=== PATIENT | male | born 1950 | race Caucasian/White ===

== ENCOUNTER 2016-10-24 13:17 | Emergency (ER) | payer SELFPAY ==
[~2016-10-24] VITALS: Ht 185.4 cm; Wt 98.0 kg
[~2016-10-24 13:17] MED LIST: HALO5AMP3 PO; METF10002 PO
[2016-10-24] MEDS ORDERED: SODIUM CHLORIDE 0.9% 1,000ML IVBOLUS ONE ×2 (13:30→14:30)
[2016-10-24] MEDS ORDERED: PLEASE ENTER ALLERGIES MC SCH ×2 (13:30)
[2016-10-24 13:44] VITALS: BP 164/74
[2016-10-24 14:03] LABS: HEMOGLOBIN 13.8 g/dL (13.7-18.0)
[2016-10-24 14:08] LABS: BLOOD UREA NITROGEN 12 mg/dL (7-18)
[2016-10-24] MEDS ORDERED: INSULIN REGULAR 100 UNITS/ML, 3ML VIAL SQ-INSULIN ONE (14:30)
[2016-10-24] MEDS ORDERED: INSULIN REGULAR 100 UNITS/ML, 3ML VIAL ONE (14:44)
== END 2016-10-24 15:04 | disposition home or self-care (01) ==
LOC: ED 14:58
DX: F10.220 Alcohol dependence with intoxication, uncomplicated (principal); E11.65 Type 2 diabetes mellitus with hyperglycemia; I10 Essential (primary) hypertension
CPT/HCPCS: 36415; 80048; 82040; 85025; 96360; 96372; 99284; J7030

== ENCOUNTER 2016-11-10 13:47 | Emergency (ER) | payer SELFPAY ==
[~2016-11-10] VITALS: Ht 185.4 cm; Wt 93.0 kg
[~2016-11-10 13:47] MED LIST changes: +INSU100V5 SQ-INSULIN
[2016-11-10 13:53] VITALS: BP 138/78
[2016-11-10] MEDS ORDERED: IBUPROFEN 100 MG/5 ML UDC ONE (14:34)
[2016-11-10 14:35] LABS: HEMOGLOBIN 15.7 g/dL (13.7-18.0)
[2016-11-10 14:49] LABS: ASPARTATE AMINO TRANSFERASE 11 U/L (15-37); BLOOD UREA NITROGEN 11 mg/dL (7-18)
== END 2016-11-10 15:25 | disposition left against medical advice (07) ==
LOC: ED 15:19
DX: E11.65 Type 2 diabetes mellitus with hyperglycemia (principal); I10 Essential (primary) hypertension; F17.210 Nicotine dependence, cigarettes, uncomplicated
CPT/HCPCS: 36415; 71010; 80053; 82010; 82800; 83036; 85025; 99285

== ENCOUNTER 2016-11-27 14:21 | Emergency (ER) | payer SELFPAY ==
[~2016-11-27] VITALS: Ht 182.9 cm; Wt 90.0 kg
[2016-11-27 14:24] VITALS: BP 148/83
[2016-11-27 15:01] LABS: HEMOGLOBIN 15.6 g/dL (13.7-18.0)
[2016-11-27 15:11] LABS: BLOOD UREA NITROGEN 14 mg/dL (7-18)
[2016-11-27] MEDS ORDERED: metFORMIN 500 MG TABLET PO SCH (15:30)
== END 2016-11-27 15:42 | disposition home or self-care (01) ==
LOC: ED 14:56
DX: E11.65 Type 2 diabetes mellitus with hyperglycemia (principal); I10 Essential (primary) hypertension
CPT/HCPCS: 36415; 80048; 82040; 85025; 99284

== ENCOUNTER 2017-08-28 11:01 | Emergency (ER) | payer SELFPAY ==
[~2017-08-28] VITALS: Ht 180.3 cm; Wt 100.0 kg
[2017-08-28 11:14] VITALS: BP 148/72
== END 2017-08-28 11:25 | disposition left against medical advice (07) ==
LOC: ED 11:19
DX: R55 Syncope and collapse (principal); I10 Essential (primary) hypertension; E11.9 Type 2 diabetes mellitus without complications; Z90.89 Acquired absence of other organs
CPT/HCPCS: 99283

== ENCOUNTER 2017-08-30 02:40 | Emergency (ER) | payer SELFPAY ==
[2017-08-30 02:55] VITALS: BP 114/84
== END 2017-08-30 03:05 | disposition home or self-care (01) ==
LOC: ED 02:59
DX: R06.00 Dyspnea, unspecified (principal); I10 Essential (primary) hypertension; E11.65 Type 2 diabetes mellitus with hyperglycemia
CPT/HCPCS: 82962; 99283

== ENCOUNTER 2017-10-25 11:16 | Observation (INO) | payer OTHER ==
[~2017-10-25] VITALS: Ht 177.8 cm; Wt 87.0 kg
[2017-10-25] MEDS ORDERED: BENZ1TAB61 PO (11:42)
[2017-10-25] MEDS ORDERED: CHOL20002 PO (11:42)
[2017-10-25] MEDS ORDERED: OMEP20TA62 PO (11:42)
[2017-10-25] MEDS ORDERED: METF500T4 PO (11:42)
[2017-10-25] MEDS ORDERED: ACET650S21 PO (11:42)
[2017-10-25] MEDS ORDERED: DIPH25CA61 PO (11:42)
[2017-10-25] MEDS ORDERED: HYDR12.53 PO (11:42)
[2017-10-25] MEDS ORDERED: LEVE500T53 PO (11:42)
[2017-10-25] MEDS ORDERED: HALO5TAB5 PO (11:42)
[2017-10-25 11:58] LABS: BASOPHILS # (AUTO) 0.03 x10^3/uL (0-0.1); BASOPHILS % (AUTO) 0 % (0-1); EOSINOPHILS # (AUTO) 0.13 x10^3/uL (0-0.4); EOSINOPHILS % (AUTO) 2 % (1-7); LYMPHOCYTES # (AUTO) 2.54 x10^3/uL (1-3.4); LYMPHOCYTES % (AUTO) 32 % (22-44); MD NO; MEAN CORPUSCULAR HEMOGLOBIN 30.5 pg (27.5-34.5); MEAN CORPUSCULAR HGB CONC 33.7 g/dL (33.2-36.2); MEAN CORPUSCULAR VOLUME 90.4 fL (81-97); MEAN PLATELET VOLUME 8.4 fL (7.4-10.4); MONOCYTES % (AUTO) 6 % (2-9); NEUTROPHILS # (AUTO) 4.84 x10^3/uL (1.8-6.8); NEUTROPHILS % (AUTO) 60 % (42-75); PLATELET COUNT 269 x10^3/uL (130-400); RED BLOOD COUNT 5.33 x10^6/uL (4.38-5.82); RED CELL DISTRIBUTION WIDTH 14.2 % (9.4-14.8)
[2017-10-25 12:17] LABS: ALKALINE PHOSPHATASE 102 U/L (45-117); BILIRUBIN,TOTAL 0.8 mg/dL (0.2-1.0); CREATININE 1.02 mg/dL (0.7-1.3); T4 (THYROXINE) 9.4 mcg/dL (4.5-12.1); TOTAL PROTEIN 7.7 g/dL (6.4-8.2); TROPONIN I < 0.015 ng/mL (0.000-0.045)
[2017-10-25 12:22] LABS: ALANINE AMINOTRANSFERASE 23 U/L (12-78); ALBUMIN 3.9 g/dL (3.4-5.0); ANION GAP 7 mmol/L (5-15); CALCIUM 8.6 mg/dL (8.5-10.1); CHLORIDE 104 mmol/L (98-107)
[2017-10-25 13:02] LABS: MICROSCOPIC AUTO
[2017-10-25 13:04] LABS: CULTURE INDICATED? YES
[2017-10-25] MEDS ORDERED: CEFTRIAXONE PMX 1GM/50ML 50 ML IVPB ONE (14:00)
[2017-10-25 14:03] LABS: AMPHETAMINE SCREEN, URINE Negative (Negative); BARBITURATE SCREEN, URINE Negative (Negative); BENZODIAZEPINE SCREEN, URINE Negative (Negative); CANNABINOID SCREEN, URINE Negative (Negative); COCAINE SCREEN, URINE Negative (Negative); METHADONE SCREEN, URINE Negative (Negative); OPIATE SCREEN, URINE Negative (Negative)
[2017-10-25] MEDS ORDERED: CEFTRIAXONE PMX 1GM/50ML 50 ML ONE (14:10)
[2017-10-25] MEDS ORDERED: hydrALAzine 20 MG/ML, 1ML IVPush PRN (15:00)
[2017-10-25] MEDS ORDERED: ENOXAPARIN 40 MG/0.4 ML SQ SCH (15:00)
[2017-10-25] MEDS ORDERED: DOCUSATE 100 MG CAPSULE PO PRN (15:00)
[2017-10-25] MEDS ORDERED: ACETAMINOPHEN 325 MG TABLET PO PRN (15:00)
[2017-10-25] MEDS ORDERED: BISACODYL 10 MG SUPP PR PRN (15:00)
[2017-10-25] MEDS ORDERED: POLYETHYLENE GLYCOL 17 GM PACKET PO PRN (15:00)
[2017-10-25] MEDS ORDERED: GLUCAGON 1 MG IM PRN (15:00)
[2017-10-25] MEDS ORDERED: ENALAPRILAT 1.25 MG/ML, 2ML IVPush PRN (15:00)
[2017-10-25] MEDS ORDERED: ONDANSETRON 2MG/ML, 2ML IVPush PRN (15:00)
[2017-10-25] MEDS ORDERED: DEXTROSE 4 GM TAB.CHEW PO PRN (15:00)
[2017-10-25] MEDS ORDERED: DEXTROSE 50%, 50ML SYRINGE IVPush PRN (15:00)
[2017-10-25 16:20] VITALS: BP 107/71
[2017-10-25] MEDS: SODIUM CHLORIDE 0.9% 1,000 ML IV SCH (16:45)
[2017-10-25] MEDS: INSULIN LISPRO 100 UNITS/ML, PEN SQ-INSULIN SCH ×2 (18:05→21:19)
[2017-10-25 19:41] VITALS: BP 96/64
[2017-10-25] MEDS: metFORMIN 500 MG TABLET PO SCH (21:18)
[2017-10-25] MEDS: LEVETIRACETAM 500 MG TABLET PO SCH (21:18)
[2017-10-25] MEDS: SODIUM CHLORIDE FLUSH 10ML SYR IVF SCH (21:19)
[2017-10-26 02:00] VITALS: BP 109/71
[2017-10-26] MEDS: SODIUM CHLORIDE 0.9% 1,000 ML IV SCH ×2 (03:00→11:00)
[2017-10-26 05:43] LABS: BASOPHILS # (AUTO) 0.04 x10^3/uL (0-0.1); BASOPHILS % (AUTO) 0 % (0-1); EOSINOPHILS # (AUTO) 0.12 x10^3/uL (0-0.4); EOSINOPHILS % (AUTO) 1 % (1-7); LYMPHOCYTES # (AUTO) 2.85 x10^3/uL (1-3.4); LYMPHOCYTES % (AUTO) 30 % (22-44); MD NO; MEAN CORPUSCULAR HEMOGLOBIN 30.7 pg (27.5-34.5); MEAN CORPUSCULAR HGB CONC 33.9 g/dL (33.2-36.2); MEAN CORPUSCULAR VOLUME 90.5 fL (81-97); MEAN PLATELET VOLUME 8.5 fL (7.4-10.4); MONOCYTES # (AUTO) 0.65 x10^3/uL (0.2-0.8); MONOCYTES % (AUTO) 7 % (2-9); NEUTROPHILS # (AUTO) 5.99 x10^3/uL (1.8-6.8); NEUTROPHILS % (AUTO) 62 % (42-75); PLATELET COUNT 244 x10^3/uL (130-400); RED BLOOD COUNT 4.85 x10^6/uL (4.38-5.82); RED CELL DISTRIBUTION WIDTH 14.7 % (9.4-14.8)
[2017-10-26 05:51] LABS: ANION GAP 7 mmol/L (5-15); CALCIUM 8.6 mg/dL (8.5-10.1); CHLORIDE 106 mmol/L (98-107); CREATININE 0.99 mg/dL (0.7-1.3)
[2017-10-26 07:30] VITALS: BP 96/58
[2017-10-26] MEDS: INSULIN LISPRO 100 UNITS/ML, PEN SQ-INSULIN SCH ×2 (07:50→12:20)
[2017-10-26] MEDS ORDERED: CHOLECALCIFEROL 1,000 UNIT TABLET PO SCH (09:00)
[2017-10-26] MEDS ORDERED: CIPR500T87 PO (10:20)
[2017-10-26] MEDS: LEVETIRACETAM 500 MG TABLET PO SCH (10:23)
[2017-10-26] MEDS: metFORMIN 500 MG TABLET PO SCH (10:23)
[2017-10-26] MEDS: SODIUM CHLORIDE FLUSH 10ML SYR IVF SCH (10:25)
[2017-10-26] MEDS ORDERED: FLU VACC QS2017-18 (36MOS+) UP/PF 0.5 ML IM-VACC ONE (11:00)
[2017-10-26] MEDS ORDERED: PNEUMOCOCCAL 23 VACCINE IM-VACC ONE (11:00)
[2017-10-26] MEDS ORDERED: CEFTRIAXONE PMX 1GM/50ML 50 ML IV SCH (12:00)
[2017-10-26 12:11] VITALS: BP 105/69
== END 2017-10-26 14:27 | disposition home or self-care (01) ==
LOC: ED 12:13 → INTOOBSV 14:29 → EDIP 14:29 → 4WST 16:23
PROVIDERS: ADMIT Internal Medicine; ATTEND Internal Medicine
DX: R42 Dizziness and giddiness (principal); N39.0 Urinary tract infection, site not specified; E11.9 Type 2 diabetes mellitus without complications; I10 Essential (primary) hypertension; F99 Mental disorder, not otherwise specified
CPT/HCPCS: 36415; 70450; 71045; 80048; 80053; 80307; 81001; 82962; 83605; 83735; 84436; 84443; 84484; 85025; 87040; 87077; 87086; 87186; 90471; 90472; 90686; 90732; 93005; 96361; 96365; 96372; 96375; 99285; G0378; J0696; J1650; J1815; J2405; J7030

== ENCOUNTER 2018-01-21 10:34 | Emergency (ER) | payer SELFPAY ==
[~2018-01-21] VITALS: Ht 177.8 cm; Wt 92.0 kg
[~2018-01-21 10:34] MED LIST changes: +ACET650S21 PO; +BENZ1TAB61 PO; +CHOL20002 PO; +CIPR500T87 PO; +DIPH25CA61 PO; +HALO5TAB5 PO; +HYDR12.53 PO; +LEVE500T53 PO; +METF500T4 PO; +OMEP20TA62 PO
[2018-01-21 10:50] VITALS: BP 105/76
== END 2018-01-21 11:56 | disposition home or self-care (01) ==
LOC: ED 11:39
DX: R42 Dizziness and giddiness (principal); I10 Essential (primary) hypertension; E11.9 Type 2 diabetes mellitus without complications; Z59.0 Homelessness
CPT/HCPCS: 93005; 99283

== ENCOUNTER 2018-08-23 15:40 | Emergency (ER) | payer SELFPAY ==
[~2018-08-23] VITALS: Ht 172.7 cm; Wt 100.0 kg
[~2018-08-23 15:40] MED LIST changes: -CHOL20002 PO; +CHOL200052 PO; +HYDR12.517 PO; -HYDR12.53 PO; +METF500T17 PO; -METF500T4 PO
[2018-08-23 17:08] VITALS: BP 122/84
== END 2018-08-23 17:10 | disposition home or self-care (01) ==
LOC: ED 17:04
DX: B34.9 Viral infection, unspecified (principal); I10 Essential (primary) hypertension; E11.9 Type 2 diabetes mellitus without complications; F17.200 Nicotine dependence, unspecified, uncomplicated; Z90.89 Acquired absence of other organs
CPT/HCPCS: 71046; 82962; 93005; 99283

== ENCOUNTER 2020-10-17 01:30 | Emergency (ER) | payer SELFPAY ==
[~2020-10-17] VITALS: Ht 172.7 cm; Wt 93.0 kg
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
--- NOTE | 2020-10-17 01:44 | NUR ---
ERP AT BEDSIDE
[2020-10-17 02:10] LABS: BASOPHILS % (AUTO) 1 % (0-1); EOSINOPHILS % (AUTO) 1 % (1-7); LYMPHOCYTES % (AUTO) 25 % (22-44); MEAN CORPUSCULAR HEMOGLOBIN 31.1 pg (27.5-34.5); MEAN CORPUSCULAR HGB CONC 34.6 g/dL (33.2-36.2); MONOCYTES % (AUTO) 8 % (2-9); NEUTROPHILS % (AUTO) 65 % (42-75); PLATELET COUNT 248 x10^3/uL (130-400); RED BLOOD COUNT 4.89 x10^6/uL (4.38-5.82); RED CELL DISTRIBUTION WIDTH 13.9 % (9.4-14.8)
[2020-10-17 02:11] LABS: MD NO
[2020-10-17 02:18] LABS: ALBUMIN 3.8 g/dL (3.4-5.0); ANION GAP 6 mmol/L (5-15); CALCIUM 8.5 mg/dL (8.5-10.1); CHLORIDE 109 mmol/L (98-107); CREATININE 0.82 mg/dL (0.7-1.3)
[2020-10-17 02:22] LABS: TROPONIN I < 0.015 ng/mL (0.000-0.045)
[2020-10-17 02:49] VITALS: BP 122/86
--- NOTE | 2020-10-17 02:50 | NUR ---
Patient given discharge instructions and they have confirmed that they understand the instructions. Patient ambulatory with steady gait.
== END 2020-10-17 02:52 | disposition home or self-care (01) ==
LOC: ED 02:00
DX: R07.89 Other chest pain (principal); Z72.9 Problem related to lifestyle, unspecified; I10 Essential (primary) hypertension; E11.65 Type 2 diabetes mellitus with hyperglycemia; F17.200 Nicotine dependence, unspecified, uncomplicated
CPT/HCPCS: 36415; 71045; 80048; 82040; 84484; 85025; 93005; 99285

== ENCOUNTER 2020-11-10 14:58 | Emergency (ER) | payer SELFPAY ==
[~2020-11-10] VITALS: Ht 172.7 cm; Wt 95.0 kg
[2020-11-10 14:58] VITALS: BP 104/52
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
--- NOTE | 2020-11-10 15:22 | NUR ---
PT LEAVING AMA. PT STATED "YOU AIN'T GIVING ME ANY INSULIN" WHILE AWAITING INITIAL ERP ENCOUNTER. PT CONTINUED TO REFUSE DESPITE EDUCATING PT ON ER PROCESS. PT REFUSED PIV REMOVAL UNTIL SECURITY CALLED FOR ASSISTANCE. ESCORTED TO EXIT BY SECURITY. PT REFUSED TO SIGN AMA FORM. DR. HODGE AWARE. PT AMBULATED WITH STEADY GAIT WITH ALL PERSONAL BELONGINGS.
== END 2020-11-10 15:28 | disposition left against medical advice (07) ==
LOC: ED 15:15
DX: Z53.21 Procedure and treatment not carried out due to patient leaving prior to being seen by health care provider (principal); R94.31 Abnormal electrocardiogram [ECG] [EKG]
CPT/HCPCS: 93005

== ENCOUNTER 2020-11-12 19:37 | Emergency (ER) | payer SELFPAY ==
[~2020-11-12] VITALS: Ht 172.7 cm; Wt 95.5 kg
[2020-11-12 19:42] VITALS: BP 137/72
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
--- NOTE | 2020-11-12 21:03 | NUR ---
Patient given discharge instructions and they have confirmed that they understand the instructions. Patient ambulatory with steady gait. Pt given taxi voucher as well.
== END 2020-11-12 21:20 | disposition home or self-care (01) ==
LOC: ED 20:40
DX: S00.83XA Contusion of other part of head, initial encounter (principal); I10 Essential (primary) hypertension; X58.XXXA Exposure to other specified factors, initial encounter; Y93.79 Activity, other specified sports and athletics; Y92.328 Other athletic field as the place of occurrence of the external cause; Y99.8 Other external cause status
CPT/HCPCS: 70486; 99284

== ENCOUNTER 2020-11-17 18:14 | Emergency (ER) | payer SELFPAY ==
[~2020-11-17] VITALS: Ht 172.7 cm; Wt 95.0 kg
[2020-11-17 18:16] VITALS: BP 90/55
--- NOTE | 2020-11-17 18:30 | NUR ---
RUBÉN RN: PT JOSE JUAN SPENCER FROM 7-11 AFTER HAVING A SUDDEN ONSET OF CENTER CHEST PAIN. PT ALSO REPORTS HE WANTS OXYGEN FOR HOME. PT WAS GIVEN NITRO, ZOFRAN, FENTANYL. PT REPORTS HE STILL HAS 8/10 CHEST PAIN. EKG DONE. CUSTOMER SERVICE TECHNICIAN ON. NSR NOTED. CALL LIGHT IN PLACE. REPORT GIVEN TO BRYNN BALLARD
--- NOTE | 2020-11-17 19:14 | NUR ---
PT RESTING IN CORINNA RESENDIZ AT THIS TIME, MONITORING IN PLACE, WCTM.
--- NOTE | 2020-11-17 20:07 | NUR ---
RETURNED FROM BREAK TO FIND PT NOT IN ROOM. PT HAS ELOPED. THIS RN CALLED ALISA BRANDON, TO LOCATE PT AND BRING BACK FOR PIV REMOVAL.
== END 2020-11-17 20:06 | disposition left against medical advice (07) ==
LOC: ED 20:00
DX: R07.9 Chest pain, unspecified (principal); Z53.21 Procedure and treatment not carried out due to patient leaving prior to being seen by health care provider
CPT/HCPCS: 93005